=== PATIENT | male | born 1975 | race Caucasian/White ===

== ENCOUNTER 2020-08-05 09:39 | Inpatient (IN) | payer OTHER ==
[2020-08-05] MEDS ORDERED: LABETALOL 5 MG/ML VIAL MDV IVP STA (09:55)
--- NOTE | 2020-08-05 09:58 | ED ---
General Adult HPI - General Chief complaint: Neuro Symptoms/Deficit Stated complaint: High BP Time Seen by Provider: 08/05/20 09:45 Source: patient, EMS Mode of arrival: EMS Limitations: no limitations - History of Present Illness Initial comments: Dictation was produced using [employer] dictation software. please excuse any grammatical, word or spelling errors. This patient was cared for during a federal and state declared state of emergency secondary to Covid 19 Chief Complaint: 45-year-old male presents with word finding difficulties History of Present Illness: Patient is a 45-year-old male he has past medical history of hypertension and tobacco abuse. Patient noticed yesterday that he began having difficulty speaking. He feels like he is having trouble finding words. Initially his symptoms were noticed at around lunchtime yesterday. He states that his symptoms progressed area does morning he had a phone call with another individual who had difficulty understanding his speech. Patient states he notices this. He reports that he is having difficulty finding words. Denies any noticing paresthesias to the arms or legs. No history of CVA. Patient takes multiple medications for CVA. No history of CVA. He has no pain complaints at this time. The ROS documented in this emergency department record has been reviewed and confirmed by me. Those systems with pertinent positive or negative responses have been documented in the HPI. All other systems are other negative and/or noncontributory. PHYSICAL EXAM: General Impression: Alert and oriented x3, not in acute distress HEENT: Normocephalic atraumatic, extra-ocular movements intact, pupils equal and reactive to light bilaterally, mucous membranes moist. Cardiovascular: Heart regular rate and rhythm Chest: Able to complete full sentences, no retractions, no tachypnea Abdomen: abdomen soft, non-tender, non-distended, no organomegaly Musculoskeletal: Pulses present and equal in all extremities, no peripheral edema Motor: no focal deficits noted Neurological: CN II-XII grossly intact, no focal motor or sensory deficits noted, NIH of 1 for mild dysarthria, non-aphasic, no ataxia to the extremities Skin: Intact with no visualized rashes Psych: Normal affect and mood ED course: 45-year-old male presents with strokelike symptoms. Is unclear when patients symptoms started. He knows it at around noon yesterday however could quite possibly be that he suffered CVA while in his sleep. As upon arrival shows blood pressure of 239/146, rest of vital signs within acceptable limits. Patient takes multiple blood pressure medications. He states he is noncompliant with his BP meds. Laboratory evaluation obtained. CBC unremarkable. Coag panel is negative. Metabolic panel shows creatinine of 1.28. Bilirubin 1.9. Rest of labs unremarkable. CT of the brain shows no acute processes. Chest x-ray unremarkable. CT angios the head and neck shows no acute processes. Patient is very hypertensive upon arrival with a initial blood pressure 239 of 146. Repeat shows 2 4163. Given degree of hypertension. She was given labetalol with decreased blood pressure 180/133. Patient symptoms still persistent. She given aspirin. Patient be admitted for concerns of CVA. Given duration of patient's symptoms and NIH of 0 TPA not indicated at this time. Patient is agreeable for admission. Neurology will be consulted. EKG interpretation: Ventricular rate V1, normal sinus rhythm, CO interval 160, QRS 124, QTC 450. No CO prolongation, no QTC prolongation. I see elevation in V3 and V4 with concave upwards. Patient has no chest pain. No EKG for comparisonRepeat EKG was performed approximately 30 minutes later showing no dynamic changes. EKG shows heart rate of 69, normal sinus rhythm,. Interval 82, QRS 114, QTc 424 EKG likely secondary to benign early repolarization secondary to hypertensive heart disease from chronic antihypertensive rx noncompliance. - Related Data Home Medications Medication Instructions Recorded Confirmed Carvedilol [Coreg] 25 mg PO BID 08/05/20 08/05/20 hydrALAZINE HCL [Apresoline] 50 mg PO TID 08/05/20 08/05/20 lisinopriL [Zestril] 20 mg PO BID 08/05/20 08/05/20 Allergies Allergy/AdvReac Type Severity Reaction Status Date / Time No Known Allergies Allergy Verified 08/05/20 11:04 Review of Systems ROS Statement: Those systems with pertinent positive or pertinent negative responses have been documented in the HPI. ROS Other: All systems not noted in ROS Statement are negative. Past Medical History Past Medical History: Hypertension History of Any Multi-Drug Resistant Organisms: None Reported Past Surgical History: Cholecystectomy Past Psychological History: No Psychological Hx Reported Smoking Status: Current every day smoker Past Alcohol Use History: None Reported Past Drug Use History: None Reported General Exam Limitations: no limitations Course Vital Signs 08/05/20 08/05/20 08/05/20 09:42 09:51 10:02 Temperature 98 F Pulse Rate 75 80 73 Respiratory 18 16 18 Rate Blood Pressure 239/146 240/163 206/138 O2 Sat by Pulse 99 97 98 Oximetry 08/05/20 10:16 Temperature Pulse Rate 70 Respiratory 18 Rate Blood Pressure 188/133 O2 Sat by Pulse 97 Oximetry Medical Decision Making - Lab Data Result diagrams: 08/05/20 10:08 08/05/20 10:08 Lab Results 08/05/20 08/05/20 08/05/20 Range/Units 10:08 10:08 10:08 WBC 7.8 (3.8-10.6) k/uL RBC 5.40 (4.30-5.90) m/uL Hgb 16.2 (13.0-17.5) gm/dL Hct 45.7 (39.0-53.0) % MCV 84.7 (80.0-100.0) fL MCH 30.0 (25.0-35.0) pg MCHC 35.4 (31.0-37.0) g/dL RDW 13.3 (11.5-15.5) % Plt Count 179 (150-450) k/uL MPV 7.1 Neutrophils % 67 % Lymphocytes % 23 % Monocytes % 4 % Eosinophils % 4 % Basophils % 1 % Neutrophils # 5.2 (1.3-7.7) k/uL Lymphocytes # 1.8 (1.0-4.8) k/uL Monocytes # 0.3 (0-1.0) k/uL Eosinophils # 0.3 (0-0.7) k/uL Basophils # 0.1 (0-0.2) k/uL PT 10.3 (9.0-12.0) sec INR 1.0 (<1.2) APTT 23.9 (22.0-30.0) sec Sodium 143 (137-145) mmol/L Potassium 3.5 (3.5-5.1) mmol/L Chloride 108 H (98-107) mmol/L Carbon Dioxide 28 (22-30) mmol/L Anion Gap 7 mmol/L BUN 14 (9-20) mg/dL Creatinine 1.28 H (0.66-1.25) mg/dL Est GFR (CKD-EPI)AfAm 79 (>60 ml/min/1.73 sqM) Est GFR (CKD-EPI)NonAf 68 (>60 ml/min/1.73 sqM) Glucose 112 H (74-99) mg/dL Calcium 9.4 (8.4-10.2) mg/dL Total Bilirubin 1.9 H (0.2-1.3) mg/dL AST 18 (17-59) U/L ALT 11 (4-49) U/L Alkaline Phosphatase 73 (38-126) U/L Troponin I (0.000-0.034) ng/mL Total Protein 6.9 (6.3-8.2) g/dL Albumin 4.3 (3.5-5.0) g/dL 08/05/20 Range/Units 10:08 WBC (3.8-10.6) k/uL RBC (4.30-5.90) m/uL Hgb (13.0-17.5) gm/dL Hct (39.0-53.0) % MCV (80.0-100.0) fL MCH (25.0-35.0) pg MCHC (31.0-37.0) g/dL RDW (11.5-15.5) % Plt Count (150-450) k/uL MPV Neutrophils % % Lymphocytes % % Monocytes % % Eosinophils % % Basophils % % Neutrophils # (1.3-7.7) k/uL Lymphocytes # (1.0-4.8) k/uL Monocytes # (0-1.0) k/uL Eosinophils # (0-0.7) k/uL Basophils # (0-0.2) k/uL PT (9.0-12.0) sec INR (<1.2) APTT (22.0-30.0) sec Sodium (137-145) mmol/L Potassium (3.5-5.1) mmol/L Chloride (98-107) mmol/L Carbon Dioxide (22-30) mmol/L Anion Gap mmol/L BUN (9-20) mg/dL Creatinine (0.66-1.25) mg/dL Est GFR (CKD-EPI)AfAm (>60 ml/min/1.73 sqM) Est GFR (CKD-EPI)NonAf (>60 ml/min/1.73 sqM) Glucose (74-99) mg/dL Calcium (8.4-10.2) mg/dL Total Bilirubin (0.2-1.3) mg/dL AST (17-59) U/L ALT (4-49) U/L Alkaline Phosphatase (38-126) U/L Troponin I <0.012 (0.000-0.034) ng/mL Total Protein (6.3-8.2) g/dL Albumin (3.5-5.0) g/dL Disposition Clinical Impression: Dysarthria, Hypertensive urgency Disposition: ADMITTED IP TO THIS HOSP Condition: Fair Referrals: Vitaly Abbott DO [Primary Care Provider] - 1-2 days Decision Time: 12:12
[2020-08-05 10:21] LABS: Basophils # (A) 0.1 k/uL (0-0.2); Basophils % (A) 1 %; Eosinophils # (A) 0.3 k/uL (0-0.7); Eosinophils % (A) 4 %; HCT 45.7 % (39.0-53.0); HGB 16.2 gm/dL (13.0-17.5); Lymphocytes # (A) 1.8 k/uL (1.0-4.8); Lymphocytes % (A) 23 %; MCHC 35.4 g/dL (31.0-37.0); MCV 84.7 fL (80.0-100.0); Mean Platelet Volume 7.1; Monocytes # (A) 0.3 k/uL (0-1.0); Monocytes % (A) 4 %; Neutrophils # (A) 5.2 k/uL (1.3-7.7); Neutrophils % (A) 67 %; Platelet Count 179 k/uL (150-450); RDW 13.3 % (11.5-15.5); WBC 7.8 k/uL (3.8-10.6)
[2020-08-05 10:35] LABS: Partial Thromboplastin Time 23.9 sec (22.0-30.0); Prothrombin Time 10.3 sec (9.0-12.0)
[2020-08-05 10:37] LABS: Albumin 4.3 g/dL (3.5-5.0); Calcium 9.4 mg/dL (8.4-10.2); Potassium 3.5 mmol/L (3.5-5.1); Total Bilirubin 1.9 mg/dL (0.2-1.3); Total Protein 6.9 g/dL (6.3-8.2)
--- NOTE | 2020-08-05 10:38 | CT ---
EXAMINATION TYPE: CT brain wo con for TPA DATE OF EXAM: 08/05/2020 COMPARISON: None INDICATION: episode of slurred speech DLP: 1077 mGycm, Automated exposure control for dose reduction was used. CONTRAST: None CT of the brain is performed utilizing 3 mm thick sections through the posterior fossa and 3 mm thick sections through the remaining calvarium. Study is performed within 24 hours of arrival to the hosp ital. No abnormal hyperdensity is present to suggest an acute intracranial hemorrhage. No mass lesion is evident. No acute infarcts are evident. Ventricles and sulci are appropriate for the patient age. Paranasal sinuses and mastoid air cells within the [id number] are clear. IMPRESSIONS: 1. No acute intracranial process.
--- NOTE | 2020-08-05 10:43 | XR ---
EXAMINATION TYPE: XR chest 2V DATE OF EXAM: 08/05/2020 CLINICAL HISTORY: altered mental status. TECHNIQUE: Frontal and lateral view of the chest. COMPARISON: 03/01/2012 chest radiograph FINDINGS: The cardiomediastinal silhouette is within normal limits for size. Pulmonary vasculature i s normal. There is no focal air space opacity, pleural effusion, or pneumothorax seen. The osseous st ructures are intact. IMPRESSION: No acute cardiopulmonary process.
--- NOTE | 2020-08-05 10:52 | CT ---
EXAMINATION TYPE: CT angio head neck DATE OF EXAM: 08/05/2020 COMPARISON: None HISTORY: episode of slurred speech CT DLP: 507.4 mGycm CONTRAST: Performed with IV Contrast, patient injected with 65 mL of Isovue 370. Combination Contrast CTA cervical carotids and [place] CTA cervical carotids with 3-D recons truction Contrast CTA of the cervical carotids was performed 3-D reconstruction imaging obtained at a separate workstation. Right carotid system: Mild plaque is seen of the right common carotid artery. There is mild plaque a lso noted at the carotid bulb and proximal ICA. No significant diameter reduction. ECA is patent. Right vertebral artery appears unremarkable. Left carotid system: Mild plaque is seen of the left common carotid artery. There is mild plaque als o noted at the carotid bulb and proximal ICA. No significant diameter reduction. ECA is patent. Lef t vertebral artery appears unremarkable. IMPRESSION: 1. No significant diameter reduction to account for the patient's symptoms. CTA [place] with 3-D reconstruction Contrast CTA of the [place] was performed 3-D reconstruction imaging obtained at a separate workstation. Vertebrobasilar system as well as intracranial portions of the internal carotid arteries and their ma ezekiel tributaries are patent. I do not see evidence for sizable aneurysm or vascular malformation. Pl ease note MRI provides greater sensitivity and specificity. Visualized brain appears grossly unremar kable. IMPRESSION: 1. No significant abnormality.
[2020-08-05] MEDS ORDERED: ASPIRIN 81 MG PO STA (11:32)
[2020-08-05] MEDS ORDERED: NALOXONE 0.4 MG/ML 1 ML VIAL IV PRN (11:49)
[2020-08-05] MEDS: SODIUM CHLORIDE 0.9% 1,000 ML IV SCH (12:37)
[2020-08-05] MEDS ORDERED: lisinopriL 20 MG TAB PO SCH (14:00)
[2020-08-05] MEDS ORDERED: carvediloL 12.5 MG TAB PO SCH (14:00)
[2020-08-05] MEDS: hydrALAZINE HCL 50 MG TAB PO SCH ×2 (14:58→22:11)
[2020-08-05] MEDS: ENOXAPARIN 40 MG/0.4 ML SYRINGE SQ SCH (14:58)
[2020-08-05] MEDS ORDERED: MELATONIN 3 MG TABLET PO PRN (16:32)
[2020-08-05] MEDS ORDERED: CALCIUM CARBONATE 500 MG CHEWABLE PO PRN (16:32)
[2020-08-05] MEDS ORDERED: MAG HYDROX/AL HYDROX/SIMETH 30 ML CUP PO PRN (16:32)
[2020-08-05] MEDS ORDERED: ONDANSETRON 4 MG/2 ML VIAL IVP PRN (16:32)
[2020-08-05] MEDS ORDERED: LACTULOSE 20 GM/30 ML CUP PO PRN (16:32)
--- NOTE | 2020-08-05 17:18 | US ---
EXAMINATION TYPE: US carotid duplex BILAT DATE OF EXAM: 08/05/2020 COMPARISON: NONE CLINICAL HISTORY: dysarthia. Pt states slurred speech EXAM MEASUREMENTS: RIGHT: Peak Systolic Velocity (PSV) cm/sec ----- Right CCA: 76.8 ----- Right ICA: 88.9 ----- Right ECA: 108.1 ICA/CCA ratio: 1.2 RIGHT: End Diastole cm/sec ----- Right CCA: 19.7 ----- Right ICA: 30.7 ----- Right ECA: 16.0 LEFT: Peak Systolic Velocity (PSV) cm/sec ----- Left CCA: 82.3 ----- Left ICA: 80.1 ----- Left ECA: 84.5 ICA/CCA ratio: 1.0 LEFT: End Diastole cm/sec ----- Left CCA: 27.4 ----- Left ICA: 31.8 ----- Left ECA: 16.4 VERTEBRALS (direction of flow): Right Vertebral: Antegrade Left Vertebral: Antegrade Rhythm: Normal No significant stenosis seen, 1.0 cm lymph node visualized left lateral neck near left CCA IMPRESSION: Images and measurements suggest close to 0% stenosis in both internal carotid arteries. There is ante grade flow in the vertebral arteries. Criteria for Assigning % of Stenosis / Diameter reduction (Estimation based on the indirect measurements of the internal carotid artery velocities (ICA PSV). 1. Normal (no stenosis)=ICA PSV < 125 cm/s: ratio < 2.0: ICA EDV<40 cm/s. 2. Less than 50% stenosis=ICA PSV < 125 cm/s: ratio < 2.0: ICA EDV<40 cm/s. 3. 50 to 69% stenosis=ICA PSV of 125 to 230 cm/s: ration 2.0 ? 4.0: ICA EDV 40-100 cm/s. 4. Greater than 70% stenosis to near occlusion= ICA PSV > 230 cm/s: ratio > 4.0: ICA EDV > 100 cm/s. 5. Near occlusion= ICA PSV velocities may be low or undetectable: variable ratio and ICA EDV. 6. Total occlusion=unable to detect flow.
--- NOTE | 2020-08-05 17:23 | US ---
EXAMINATION TYPE: US renals and bladder DATE OF EXAM: 08/05/2020 COMPARISON: US CLINICAL HISTORY: assess for CKD. Abnormal labs EXAM MEASUREMENTS: Right Kidney: 10.5 x 5.8 x 4.7 cm Left Kidney: 10.8 x 6.2 x 5.4 cm Right Kidney: No evidence of hydro, possible calculus mid= 0.4 cm Left Kidney: Appeared wnl Bladder: wnl Bilateral Jets seen: No There is no evidence for hydronephrosis at this point in time. No nephrolithiasis is seen. No marion s are identified. The urinary bladder is anechoic. Bilateral ureteral jets are seen. IMPRESSION: No evidence of renal mass or obstruction. Possible small calculus in the interpolar right kidney.
--- NOTE | 2020-08-05 19:25 | MR ---
EXAMINATION TYPE: MR brain wo con DATE OF EXAM: 08/05/2020 COMPARISON: None HISTORY: SLURRED SPEECH 08/04/20 & 08/05/20 Multiplanar multiecho imaging of the brain was performed without contrast. Diffusion images show linear 2 x 1 cm area of increased signal in the left parietal lobe at the oliver- white matter junction consistent with an acute infarct. There is no mass effect nor midline shift. Th ere is 8mm focus of increased signal in the right anterior internal capsule on the T2 and FLAIR image s consistent with old lacunar infarct. There is 4 mm focus of increased signal in the brainstem at th e daryl on the posterior left side that could be old lacunar infarct close to the cerebellar peduncle. IMPRESSION: There is evidence for acute infarct in the white matter left parietal lobe. Old lacunar infarcts in the right anterior internal capsule and left side of the daryl.
--- NOTE | 2020-08-05 19:48 | P.CNNES ---
History of Present Illness Consult date: 08/05/20 Requesting physician: Jim Bryant Reason for Consult: Concern for stroke: Slurring of speech History of Present Illness: This is a 45-year-old right-handed gentleman with medical history of uncontrolled hypertension and tobacco use that presented to the emergency department on 08/05/2020 for difficulty speaking. He said around 12:30pm to 1pm yesterday he was having difficulty getting his words out. This was noticed by him and his significant other. He said that that was consistent throughout the day yesterday but he didn't make much out of it since the patient was tired. But his symptoms progressed the today in the morning. He was on a phone call and that individual on the phone and had difficulty understanding his speech. As a result he came to the hospital. Yesterday he stated that he had a headache that went from his neck all the way to the front and it was an aching headache. He denies any photophobia, phonophobia any nausea vomiting. Today his headache is resolved and currently has no headaches. He denies of any focal weakness or any paresthesia. He denies of any visual disturbance or difficulty swallowing. He denies of any stroke or TIA. He said that he has hypertension for the past 24 years but at his hypertension has been uncontrolled. He said he cannot tolerate medications because of the side effects so as a result the there is days that he doesn't take his medications. He said that he is on losartan and Corag the for his hypertension treatment. He smokes about half a pack to three quarters of a pack a day since 2008 at. He denies being on aspirin or any antiplatelets. Denies being on any statins. Workup in the hospital consisted of: Initial vital signs: Blood pressure of 239/146, heart rate of 75, which are of 98 Fahrenheit, respiratory of 18 and pulse ox of 99% room air. CT of the head was reported as no acute intracranial process. CT angiography of the head and neck was reported as no significant abnormality. EKG is reported as normal sinus rhythm. Ventricular rate of 81. Right bundle branch block. Left anterior fascicular block. Bifascicular block. Left ventricular hypertrophy with repolarization abnormality. In the ED the patient was given labetalol 20 mg IV push once and was started on hydralazine 50 mg 1 tablet 3 times a day as well as carvedilol 25 mg 1 tablet twice a day as well as lisinopril 20 mg twice a day by the primary team. Review of Systems Review of system: The 12 point system was reviewed and apparent positive and negative per HPI. Past Medical History Past Medical History: Hypertension History of Any Multi-Drug Resistant Organisms: None Reported Past Surgical History: Cholecystectomy Past Psychological History: No Psychological Hx Reported Smoking Status: Current every day smoker Past Alcohol Use History: None Reported Past Drug Use History: None Reported - Past Family History Father Family Medical History: Cancer, Diabetes Mellitus, Hypertension, Renal Disease Mother Family Medical History: Coronary Artery Disease (CAD) Medications and Allergies Home Medications Medication Instructions Recorded Confirmed Type Carvedilol [Coreg] 25 mg PO BID 08/05/20 08/05/20 History hydrALAZINE HCL [Apresoline] 50 mg PO TID 08/05/20 08/05/20 History lisinopriL [Zestril] 20 mg PO BID 08/05/20 08/05/20 History Allergies Allergy/AdvReac Type Severity Reaction Status Date / Time No Known Allergies Allergy Verified 08/05/20 11:04 Physical Examination - Vital Signs Vital Signs: Vital Signs Temp Pulse Resp BP Pulse Ox 08/05/20 12:55 64 18 179/117 96 08/05/20 12:30 98.1 F 71 18 189/118 97 08/05/20 10:16 70 18 188/133 97 08/05/20 10:02 73 18 206/138 98 08/05/20 09:51 80 16 240/163 97 08/05/20 09:42 98 F 75 18 239/146 99 Intake and Output 08/05/20 08/05/20 08/05/20 06:59 14:59 22:59 Intake Total 222 Balance 222 Intake: Oral 222 Other: Weight 88.451 kg GENERAL: The patient is lying in bed and is not in acute distress. CHEST: The heart rate is regular rate rhythm. No murmurs to auscultation. No carotid bruit bilaterally. LUNG: Clear to auscultation bilaterally no wheezing noted throughout. Not labored breathing. ABDOMEN/GI: Bowel sounds present in all 4 quadrants. No tenderness to palpation throughout. NEUROLOGICAL: Higher mental function: The patient is awake, alert, oriented to self, place and time. Able to identify objects correctly such as a pen and watch and the phone. Patient is following commands. No aphasia . Noted. No neglect. Cranial nerves: The pupils are round, equal and reactive to light and accommodation. Visual taylor are full to confrontation throughout. Extraocular movement is intact no nystagmus is noted. Facial sensation is normal to touch throughout. The facial strength is normal throughout. Hearing is normal bilaterally to hand rub. Tongue is midline and moved [id number] without any difficulty. Mild dysarthria is noted. Shoulder shrug is normal bilaterally. Motor: The strength is 5 over 5 throughout. Normal tone and bulk. Cerebellum: Normal finger to nose heel to chin bilaterally. Sensation: Sensation is normal to touch throughout. Reflexes (right/left): 2+ throughout. Plantars are downgoing bilaterally. Results Vibration study: PT of 10.3, INR 1.0, PTT of 23.9. - Laboratory Findings CBC and BMP: 08/05/20 10:08 08/05/20 10:08 Abnormal Lab Findings: Abnormal Labs 08/05/20 10:08 Chloride 108 H Creatinine 1.28 H Glucose 112 H Total Bilirubin 1.9 H Assessment and Plan Assessment: This 45-year-old gentleman with medical history of hypertension and tobacco use that presented to the emergency department on 08/05/2020 for difficulty speaking. Dysarthria due to acute stroke. Etiology small vessel disease. Cannot rule out cardioembolic (per patient nurse his cardiac care unit nurse was suspicious for atrial fibrillation). ?cardiac care unit nurse was suspicious for atrial fibrillation (per patient nurse) Hypertensive urgency (uncontrolled hypertension) Tobacco use Plan: MRI of the brain ordered and pending final report. But DWI and flair there was a hyperintensity in the left frontal parietal region. Aspirin 324 mg was given once in the ED. patient was started on aspirin 81 mg and Plavix 75 mg by the primary team as well as was started on Lipitor 40 mg daily as well as by the primary team. Continue aspirin 81 mg indefinetiley then discontinue plavix after 21 days. I consulted cardiology because of the suspicion of A. fib. Carotid duplex was ordered by the primary team's reported as image and measurements suggest close to 0% stenosis in both internal carotid arteries. There is antegrade flow in the vertebral arteries. Consulted Speech and Language therapy. Also PT/OT. Lipid panel is pending. Ordered hemoglobin A1c and TSH. Ordered 2-D echo. I highly recommend of avoiding being aggressive on treating the hypertension more then the 15% in 24 hours especially with acute stroke. Recommend the blood pressure to be 180-200 on the first day then gradually bring the blood pressure. I'll defer the management to the primary team. Thank you for the consultation. Desean Brothers M.D. Neuro-hospitalist Time with Patient: Greater than 30
--- NOTE | 2020-08-05 21:57 | P.HPIM ---
History of Present Illness H&P Date: 08/05/20 Chief Complaint: difficulty speaking History of presenting complaint: This is a pleasant 44-year-old patient who follows with Dr. Rodríguez. Patient has a long-standing diagnosis of hypertension. And takes Zestril Coreg and hydralazine. 2 days ago patient decided not to take his medications as he didn't feel good about it. Yesterday he noticed that his words are not coming out his speech was slurred . He was also having some headache. No weakness in the limbs. No change in vision. This morning he was talking to a colleague of his on the phone previously she was a nurse. She thought he was drunk. Then she told him go to the ER. In the ER patient is not found to be candidate for thrombolysis. Patient stated his blood pressure normally runs high close to oftentimes due to 118 200 systolic.. Has not been well controlled. When I saw the patient about 5 PM today patient speech is better but not back to his baseline. Review of systems: GEN.: Tired EYES: None HEENT: None NECK: None RESPIRATORY: None CARDIOVASCULAR: None GASTROINTESTINAL: None GENITOURINARY: None MUSCULOSKELETAL: None LYMPHATICS: None HEMATOLOGICAL: None PSYCHIATRY: None NEUROLOGICAL: As above Past medical history to include: Essential hypertension Social history: Works in the IT department. . Smokes about three-quarter packs a day for about last 13 years. No alcohol. No recreational drugs. Physical examination: VITAL SIGNS: 98, 75, 18, 139/146, pulse of 99% room air-upon presentation GENERAL: BMI 27, sitting up on the bed, slightly anxious. EYES: Pupils equal. Conjunctiva normal. HEENT: External appearance of nose and ears normal, oral cavity grossly normal. NECK: JVD not raised; masses not palpable. HEART: First and second heart sounds are normal; no edema. LUNGS: Respiratory rate normal; clear to auscultation. ABDOMEN: Soft, nontender, liver spleen not palpable, no masses palpable. PSYCH: Alert and oriented x3; mood and affect normal. NEUROLOGICAL: Cranial nerves grossly intact; no facial asymmetry, power and sensation grossly intact. LYMPHATICS: No lymph nodes palpable in the axilla and neck INVESTIGATIONS, reviewed in the clinical context: White count 7.8 hemoglobin 16.2 platelets 179 potassium 3.5 creatinine 1.28 Computed tomography scan of the brain without contrast-nothing acute Chest x-ray film personally reviewed by me-lung taylor clear EKG tracing personally reviewed by me-sinus rhythm, right bundle branch block pattern, LVH with strain pattern Renal ultrasound-unremarkable Carotid Doppler-unremarkable MRI of the brain-acute infarct in the white matter left parietal lobe. Old lacunar infarct in the right anterior internal capsule and left side of the daryl Assessment: -Acute stroke no white matter of the left parietal lobe. Given the other evidence of lacunar infarct in other areas, this could be from uncontrolled hypertension. Embolic need to be considered. 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 Asymptomatic -Chronic nicotine dependence patient cigarette smoker -Acute dysarthria from stroke Plan: Patient's symptoms not been present for over 24 hours. Patient has not been taking his antihypertensives for last 2 days. Resume the same. History of Coreg will use labetalol 200 mg twice a day. He was also sent off. Consultation was made to nephrology, neurology, and currently. There is a question about paroxysmal atrial fibrillation. 2-D echocardiogram also ordered. Add Lipitor, aspirin, Plavix. Lovenox for DVT prophylaxis. Care was discussed with the patient. Add nicotine patch. Speech therapy consult. Past Medical History Past Medical History: Hypertension History of Any Multi-Drug Resistant Organisms: None Reported Past Surgical History: Cholecystectomy Past Psychological History: No Psychological Hx Reported Smoking Status: Current every day smoker Past Alcohol Use History: None Reported Past Drug Use History: None Reported - Past Family History Father Family Medical History: Cancer, Diabetes Mellitus, Hypertension, Renal Disease Mother Family Medical History: Coronary Artery Disease (CAD) Medications and Allergies Home Medications Medication Instructions Recorded Confirmed Type Carvedilol [Coreg] 25 mg PO BID 08/05/20 08/05/20 History hydrALAZINE HCL [Apresoline] 50 mg PO TID 08/05/20 08/05/20 History lisinopriL [Zestril] 20 mg PO BID 08/05/20 08/05/20 History Allergies Allergy/AdvReac Type Severity Reaction Status Date / Time No Known Allergies Allergy Verified 08/05/20 11:04 Physical Exam Vitals: Vital Signs Temp Pulse Pulse Resp BP BP Pulse Ox 08/05/20 18:49 72 184/129 97 08/05/20 14:24 97.4 F L 71 206/128 96 08/05/20 12:55 64 18 179/117 96 08/05/20 12:30 98.1 F 71 18 189/118 97 08/05/20 10:16 70 18 188/133 97 08/05/20 10:02 73 18 206/138 98 08/05/20 09:51 80 16 240/163 97 08/05/20 09:42 98 F 75 18 239/146 99 Intake and Output 08/05/20 08/05/20 08/05/20 06:59 14:59 22:59 Intake Total 222 222 Balance 222 222 Intake: Oral 222 222 Other: # Voids 1 Weight 88.451 kg 87.9 kg Results CBC & Chem 7: 08/05/20 10:08 08/05/20 10:08 Labs: Abnormal Lab Results - Last 24 Hours (Table) 08/05/20 Range/Units 10:08 Chloride 108 H (98-107) mmol/L Creatinine 1.28 H (0.66-1.25) mg/dL Glucose 112 H (74-99) mg/dL Total Bilirubin 1.9 H (0.2-1.3) mg/dL Thrombosis Risk Factor Assmnt - Choose All That Apply Each Factor Represents 1 point: Age 41-60 years Thrombosis Risk Factor Assessment Total Risk Factor Score: 1 Thrombosis Risk Factor Assessment Level: Low Risk
[2020-08-05] MEDS: LABETALOL 200 MG TAB PO SCH (22:11)
[2020-08-05] MEDS: NICOTINE 21MG/24HR PATCH TRANSDERM SCH (22:14)
[2020-08-05] MEDS: ATORVASTATIN 40 MG TAB PO SCH (22:14)
[2020-08-05] MEDS: ACETAMINOPHEN TAB 325 MG TAB PO PRN (23:36)
[2020-08-05] MEDS: LISINOPRIL-HCTZ 20-12.5 MG 1 EACH TAB PO SCH (23:37)
[2020-08-06 00:37] LABS: Appearance,Urine Clear (Clear); Bilirubin,Urine Negative (Negative); Blood,Urine Negative (Negative); Color,Urine Yellow; Glucose,Urine (UA) Negative (Negative); Ketones,Urine Negative (Negative); Leukocyte Esterase,Urine Negative (Negative); Nitrite,Urine Negative (Negative); PH, Urine 6.5 (5.0-8.0); Protein,Urine Trace (Negative); Specific Gravity,Urine 1.045 (1.001-1.035)
[2020-08-06] MEDS: hydrALAZINE HCL 50 MG TAB PO SCH ×3 (08:56→21:00)
[2020-08-06] MEDS: CLOPIDOGREL 75 MG TAB PO SCH (08:56)
[2020-08-06] MEDS: ENOXAPARIN 40 MG/0.4 ML SYRINGE SQ SCH (08:57)
[2020-08-06] MEDS: NICOTINE 21MG/24HR PATCH TRANSDERM SCH (08:57)
[2020-08-06] MEDS: ASPIRIN 81 MG PO SCH (08:57)
[2020-08-06] MEDS: LABETALOL 200 MG TAB PO SCH (09:00)
[2020-08-06] MEDS: LISINOPRIL-HCTZ 20-12.5 MG 1 EACH TAB PO SCH ×2 (09:00→23:59)
--- NOTE | 2020-08-06 11:44 | P.CRDCN ---
History of Present Illness Consult date: 08/06/20 History of present illness: CHIEF COMPLAINT: Possible A. fib HISTORY OF PRESENT ILLNESS: This is a 45 -year old male with a past medical history significant for hypertension and nicotine dependence. Patient states he saw Dr. Wong in the office about 4 years ago. He reports seeing a fold skiver up in [place] since that time. We have been asked to see the patient in consultation for possible A. fib. Patient presented to the hospital secondary to slurred speech and expressive aphasia. He has been evaluated by neurology and diagnosed with an acute CVA. Patient states his speech is improving but not back to his baseline. Patient denies a previous history of atrial fibrillation. Telemetry tracings reviewed which did not reveal any evidence of A. fib. Patient does report feeling his heart skip a beat about once a week for 5-10 minutes. Patient states he checks his blood pressure at home and it is usually 200-215s over 115s. He states his blood pressure has been running like that since 1995. He states the lowest systolic reading he has seen at home recently as 189. He reports he used to see Dr. Baron as his PCP. He was prescribed multiple blood pressure medications but didn't feel like they're helping so he quit taking them. He switched his primary care physician to Dr. Abbott and states he was also prescribed multiple medications. The patient reports he has not always compliant with his blood pressure medications. DIAGNOSTICS: EKG reveals sinus rhythm Chest xray negative for an acute cardiopulmonary process Laboratory data: WBC 7.8. Hemoglobin 16.2. Platelet count 179. Sodium 143. Potassium 3.5. BUN 14. Creatinine 1.28. Troponin negative 1. Current home cardiac medications include lisinopril 20 mg twice a day, Coreg 25 mg twice a day, hydralazine 50 g 3 times a day REVIEW OF SYSTEMS: At the time of my exam: CONSTITUTIONAL: Denies fever or chills. HEENT: Denies blurred vision, vision changes, or eye pain. Denies hemoptysis. Reports slurred speech. CARDIOVASCULAR: Denies chest pain, orthopnea, PND or palpitations RESPIRATORY: No shortness of breath. GASTROINTESTINAL: Denies abdominal pain. Denies nausea or vomiting. HEMATOLOGIC: Denies bleeding disorders. GENITOURINARY: Denies any blood in urine. SKIN: Denies pruitis. Denies rash. PHYSICAL EXAM: VITAL SIGNS: Reviewed. GENERAL: Well-developed in no acute distress. HEENT: Head is normocephalic. Pupils are equal, round. Sclerae anicteric. Mucous membranes of the mouth are moist. Neck supple. No JVD or thyromegaly LUNGS: Respirations even and unlabored. Lungs essentially clear to auscultation bilaterally. HEART: Regular rate and rhythm. S1 and S2 heard. ABDOMEN: Soft. Nondistended. Nontender. EXTREMITIES: Normal range of motion. No clubbing or cyanosis. Peripheral pulses intact. No lower extremity edema NEUROLOGIC: Awake and alert. Oriented x 3. ASSESSMENT: Acute CVA Hypertension, uncontrolled Palpitations, No evidence of atrial fibrillation on telemetry Medical noncompliance Nicotine dependence PLAN: Nephrology on consult. Continue aspirin and plavix per neuro. Continue telemetry monitoring to assess for any arrhythmias Continue to monitor blood pressure Obtain 2-D echo to assess cardiac structure and function Obtain bubble study Patient to have an event monitor placed at time of discharge for 30 days. If no evidence of atrial fibrillation is noted on event monitor, may consider loop recorder Further recommendations pending patient course Nurse practitioner note has been reviewed by physician. Signing provider agrees with the documented findings, assessment, and plan of care. Past Medical History Past Medical History: Hypertension History of Any Multi-Drug Resistant Organisms: None Reported Past Surgical History: Cholecystectomy Past Psychological History: No Psychological Hx Reported Smoking Status: Current every day smoker Past Alcohol Use History: None Reported Past Drug Use History: None Reported - Past Family History Father Family Medical History: Cancer, Diabetes Mellitus, Hypertension, Renal Disease Mother Family Medical History: Coronary Artery Disease (CAD) Medications and Allergies Home Medications Medication Instructions Recorded Confirmed Type Carvedilol [Coreg] 25 mg PO BID 08/05/20 08/05/20 History hydrALAZINE HCL [Apresoline] 50 mg PO TID 08/05/20 08/05/20 History lisinopriL [Zestril] 20 mg PO BID 08/05/20 08/05/20 History Allergies Allergy/AdvReac Type Severity Reaction Status Date / Time No Known Allergies Allergy Verified 08/05/20 11:04 Physical Exam Vitals: Vital Signs Temp Pulse Pulse Resp BP BP Pulse Ox 08/06/20 04:00 97.8 F 67 16 170/113 96 08/06/20 00:00 98.2 F 68 15 166/113 96 08/05/20 20:00 98.6 F 82 15 186/114 96 08/05/20 18:49 72 184/129 97 08/05/20 14:24 97.4 F L 71 206/128 96 08/05/20 12:55 64 18 179/117 96 08/05/20 12:30 98.1 F 71 18 189/118 97 08/05/20 10:16 70 18 188/133 97 Intake and Output 08/05/20 08/06/20 08/06/20 22:59 06:59 14:59 Intake Total 222 600 200 Balance 222 600 200 Intake: Oral 222 600 200 Other: # Voids 1 Weight 87.9 kg 88 kg Results 08/05/20 10:08 08/05/20 10:08 Cardiac Enzymes 08/05/20 08/05/20 Range/Units 10:08 10:08 AST 18 (17-59) U/L Troponin I <0.012 (0.000-0.034) ng/mL Coagulation 08/05/20 Range/Units 10:08 PT 10.3 (9.0-12.0) sec APTT 23.9 (22.0-30.0) sec CBC 08/05/20 Range/Units 10:08 WBC 7.8 (3.8-10.6) k/uL RBC 5.40 (4.30-5.90) m/uL Hgb 16.2 (13.0-17.5) gm/dL Hct 45.7 (39.0-53.0) % Plt Count 179 (150-450) k/uL Comprehensive Metabolic Panel 08/05/20 Range/Units 10:08 Sodium 143 (137-145) mmol/L Potassium 3.5 (3.5-5.1) mmol/L Chloride 108 H (98-107) mmol/L Carbon Dioxide 28 (22-30) mmol/L BUN 14 (9-20) mg/dL Creatinine 1.28 H (0.66-1.25) mg/dL Glucose 112 H (74-99) mg/dL Calcium 9.4 (8.4-10.2) mg/dL AST 18 (17-59) U/L ALT 11 (4-49) U/L Alkaline Phosphatase 73 (38-126) U/L Total Protein 6.9 (6.3-8.2) g/dL Albumin 4.3 (3.5-5.0) g/dL Current Medications Generic Name Dose Route Start Last Admin Trade Name Freq PRN Reason Stop Dose Admin Acetaminophen 650 mg 08/05/20 16:32 08/05/20 23:36 Acetaminophen Tab 325 Mg Tab PO 650 mg Q6HR PRN Administration Mild Pain or Fever > 100.5 Al Hydroxide/Mg Hydroxide 15 ml 08/05/20 16:32 Mag Hydrox/Al Hydrox/Simeth 30 Ml Cup PO Q6HR PRN Indigestion Aspirin 81 mg 08/06/20 09:00 08/06/20 08:57 Aspirin 81 Mg PO 81 mg DAILY JASWINDER Administration Atorvastatin Calcium 40 mg 08/05/20 21:00 08/05/20 22:14 Atorvastatin 40 Mg Tab PO 40 mg HS JASWINDER Administration Calcium Carbonate/Glycine 1,000 mg 08/05/20 16:32 Calcium Carbonate 500 Mg Chewable PO Q4HR PRN Dyspepsia Clopidogrel Bisulfate 75 mg 08/06/20 09:00 08/06/20 08:56 Clopidogrel 75 Mg Tab PO 75 mg DAILY JASWINDER Administration Enoxaparin Sodium 40 mg 08/05/20 14:00 08/06/20 08:57 Enoxaparin 40 Mg/0.4 Ml Syringe SQ 40 mg DAILY JASWINDER Administration Lisinopril/HCTZ 1 each 08/05/20 22:00 08/06/20 09:00 Lisinopril-Hctz 20-12.5 Mg 1 Each Tab PO 1 each BID JASWINDER Administration Hydralazine HCl 50 mg 08/05/20 15:00 08/06/20 08:56 Hydralazine Hcl 50 Mg Tab PO 50 mg TID JASWINDER Administration Sodium Chloride 1,000 mls @ 20 mls/hr 08/05/20 12:00 08/05/20 12:37 Saline 0.9% IV 20 mls/hr .Q24H JASWINDER Administration Labetalol HCl 200 mg 08/05/20 22:00 08/06/20 09:00 Labetalol 200 Mg Tab PO 200 mg BID JASWINDER Administration Lactulose 20 gm 08/05/20 16:32 Lactulose 20 Gm/30 Ml Cup PO DAILY PRN Constipation Melatonin 3 mg 08/05/20 16:32 Melatonin 3 Mg Tablet PO HS PRN Insomnia Naloxone HCl 0.2 mg 08/05/20 11:49 Naloxone 0.4 Mg/Ml 1 Ml Vial IV Q2M PRN Opioid Reversal Nicotine 1 patch 08/05/20 22:00 08/06/20 08:57 Nicotine 21mg/24hr Patch TRANSDERM 1 patch DAILY JASWINDER Administration Ondansetron HCl 4 mg 08/05/20 16:32 Ondansetron 4 Mg/2 Ml Vial IVP Q8HR PRN Nausea And Vomiting Intake and Output 08/05/20 08/06/20 08/06/20 22:59 06:59 14:59 Intake Total 222 600 200 Balance 222 600 200 Intake: Oral 222 600 200 Other: # Voids 1 Weight 87.9 kg 88 kg 08/05/20 10:08 08/05/20 10:08
[2020-08-06] MEDS: ACETAMINOPHEN TAB 325 MG TAB PO PRN (12:20)
[2020-08-06] MEDS: SODIUM CHLORIDE 0.9% 1,000 ML IV SCH (12:21)
[2020-08-06] MEDS ORDERED: hydrALAZINE HCL 20 MG/ML 1 ML VIAL IVP PRN (13:59)
--- NOTE | 2020-08-06 14:02 | P.NPCON ---
History of Present Illness - Reason for Consult acute renal failure, accelerated hypertension - History of Present Illness Reason for consultation: Acute kidney injury and hypertension History of present illness: Patient is a 45-year-old male seen in renal consultation for acute kidney injury and hypertension. Patient's creatinine was 1.28 on admission. No labs today. Creatinine in 2015 was in the range of 1.1-1.25. Patient presented to the hospital with headaches and slurred speech. Patient has long-standing history of high blood pressure and states he was initially diagnosed in 1995. Patient stopped taking his medications about 4-5 days prior to admission as he forgot. He noticed slurred speech and also had headaches since acutely came to the hospital. Patient's blood pressure was over 200 systolic on admission. He is currently maintained on Zestoretic 2012 0.5 mg twice daily, hydralazine 50 mg 3 times daily, labetalol 200 mg twice daily. Patient's MRI of the brain showed left parietal lobe acute infarct. He was also noted to have old lacunar infarcts. Renal ultrasound revealed normal sized kidneys without any evidence of hydronephrosis. He denies any hematuria or dysuria. No vomiting or diarrhea. No chest pain or shortness of breath. No vision changes. Denies regular use of nonsteroidals. He also received IV contrast dye for CT angiogram of the head which was negative. No history of diabetes. Denies family history of renal disease. Vital signs are stable. Blood pressure high. General: The patient appeared well nourished and normally developed. HEENT: Head exam is unremarkable. Neck is without jugular venous distension. LUNGS: Breath sounds decreased. HEART: Rate and Rhythm are regular. ABDOMEN: Soft, nontender. EXTREMITITES: No edema. Past Medical History Past Medical History: Hypertension History of Any Multi-Drug Resistant Organisms: None Reported Past Surgical History: Cholecystectomy Past Psychological History: No Psychological Hx Reported Smoking Status: Current every day smoker Past Alcohol Use History: None Reported Past Drug Use History: None Reported - Past Family History Father Family Medical History: Cancer, Diabetes Mellitus, Hypertension, Renal Disease Mother Family Medical History: Coronary Artery Disease (CAD) Medications and Allergies Home Medications Medication Instructions Recorded Confirmed Type Carvedilol [Coreg] 25 mg PO BID 08/05/20 08/05/20 History hydrALAZINE HCL [Apresoline] 50 mg PO TID 08/05/20 08/05/20 History lisinopriL [Zestril] 20 mg PO BID 08/05/20 08/05/20 History Allergies Allergy/AdvReac Type Severity Reaction Status Date / Time No Known Allergies Allergy Verified 08/05/20 11:04 Physical Exam Vitals: Vital Signs Temp Pulse Resp BP Pulse Ox 08/06/20 12:00 68 188/123 97 08/06/20 08:00 97.9 F 71 212/149 97 08/06/20 04:00 97.8 F 67 16 170/113 96 08/06/20 00:00 98.2 F 68 15 166/113 96 08/05/20 20:00 98.6 F 82 15 186/114 96 08/05/20 18:49 72 184/129 97 08/05/20 14:24 97.4 F L 71 206/128 96 Intake and Output 08/05/20 08/06/20 08/06/20 22:59 06:59 14:59 Intake Total 222 600 200 Balance 222 600 200 Intake: Oral 222 600 200 Other: # Voids 1 1 Weight 87.9 kg 88 kg Results - Lab Results Most recent lab results Calcium 9.4 mg/dL (8.4-10.2) 08/05/20 10:08 08/05/20 10:08 08/05/20 10:08 Assessment and Plan Plan: Assessment: 1. Hypertensive emergency. Secondary causes being ruled out. 2. Acute left parietal lobe CVA. 3. Chronic kidney disease stage III secondary to nephrosclerosis with baseline creatinine in the range of 1.1-1.3. UA fairly benign. Plan: Maintain current antihypertensives. Avoid rapid correction of hypertension due to acute CVA. Check renin and aldosterone levels. Check plasma metanephrines. Check renal ultrasound with Doppler. I will add hydralazine 10 mg every 4-6 hours as needed for systolic blood pressure greater than 180. Depending on his blood pressure readings tomorrow, plan to add calcium channel mariano and/or Aldactone and wean off hydralazine. Follow-up echocardiogram. Thank you for the consultation. I will continue to follow the patient with you during his hospital stay.
--- NOTE | 2020-08-06 17:28 | P.PN ---
Subjective Progress Note Date: 08/06/20 Patient was seen at bedside and he stated that he is doing better today compared to yesterday. He stated that the his slurring wrist. Speech is improved today compared to yesterday but has not completely resolved but he sees a difference. Otherwise he denies of any other neurological symptoms. Denies of any weakness, visual disturbance, sensory loss. He said that he had a mild headache over occipital and frontal the headache but otherwise was mild no nausea or vomiting associated with this. Denies any photophobia or photophobia associated with this. Objective - Vital Signs Vital signs: Vital Signs Temp 97.9 F 08/06/20 08:00 Pulse 68 08/06/20 12:00 Resp 16 08/06/20 04:00 BP 188/123 08/06/20 12:00 Pulse Ox 97 08/06/20 12:00 Intake & Output 08/05/20 08/06/20 08/06/20 18:59 06:59 18:59 Intake Total 444 600 325 Balance 444 600 325 Weight 87.9 kg 88 kg Intake: Oral 444 600 325 Other: # Voids 1 1 - Exam GENERAL: The patient is lying in bed and is not in acute distress. NEUROLOGICAL: Higher mental function: The patient is awake, alert, oriented to self, place and time. Able to identify objects correctly such as a pen and watch and the phone. Patient is following commands. No aphasia . Noted. No neglect. Cranial nerves: The pupils are round, equal and reactive to light and accommodation. Visual taylor are full to confrontation throughout. Extraocular movement is intact no nystagmus is noted. Facial sensation is normal to touch throughout. The facial strength is normal throughout. Hearing is normal bilaterally to hand rub. Tongue is midline and moved [id number] without any difficulty. Mild dysarthria is noted. Shoulder shrug is normal bilaterally. Motor: Gait is normal with normal arm swings. The strength is 5 over 5 throughout. Normal tone and bulk. Cerebellum: Normal finger to nose bilaterally. Sensation: Sensation is normal to touch throughout. Reflexes (right/left): 2+ throughout. Plantars are downgoing bilaterally. - Labs CBC & Chem 7: 08/05/20 10:08 08/05/20 10:08 Labs: Abnormal Lab Results - Last 24 Hours (Table) 08/05/20 08/06/20 Range/Units 23:25 09:15 Triglycerides 207 H (<150) mg/dL LDL Cholesterol, Calc 107 H (0-99) mg/dL HDL Cholesterol 35 L (40-60) mg/dL Ur Specific [place] 1.045 H (1.001-1.035) Urine Protein Trace H (Negative) Assessment and Plan Assessment: This 45-year-old gentleman with medical history of hypertension and tobacco use that presented to the emergency department on 08/05/2020 for difficulty speaking. Dysarthria due to acute ischemic left parietal. Etiology small vessel disease. Cannot rule out cardioembolic (per patient nurse his cardiac surgeon was suspicious for atrial fibrillation). Old lacunar infarct in the right anterior internal capsule and the left side of the daryl: I think likely it's due to small vessel disease from uncontrolled hypertension. ?cardiac surgeon was suspicious for atrial fibrillation (per patient nurse) Hypertensive urgency (uncontrolled hypertension) Tobacco use Plan: MRI of the brain was reported as the acute infarct in the white matter for left parietal lobe. Old lacunar infarct in the right anterior internal capsule on the left sided of the daryl. Aspirin 324 mg was given once in the ED. patient was started on aspirin 81 mg and Plavix 75 mg by the primary team as well as was started on Lipitor 40 mg aayush ly as well as by the primary team. Continue aspirin 81 mg indefinetiley then discontinue plavix after 21 days. I consulted cardiology because of the suspicion of A. fib. They are planning of placing the patient on a Holter monitoring for 30 days and if there is no A. fib. Then they plan of placing him on a loop recorder as an outpatient. Cardiology team will also perfrom a bubble study. Carotid duplex was ordered by the primary team's reported as image and measurements suggest close to 0% stenosis in both internal carotid arteries. There is antegrade flow in the vertebral arteries. Continue Speech and Language therapy. Also PT/OT. Lipid panel: Triglyceride 207, cholesterol is 183, LDLs 107, HDL is 35. The stroke the goal is LDL less than 70. 2-D echo: Pending. Pending bubble study. Ordered hemoglobin A1c:pending. TSH: 0.861 (normal). Primary team also consulted nephrology because of his the hypertension and rule out renal cause for his hypertension. Recommend the systolic blood pressure to be 160-180 I Then by tomorrow can lower it to 140-160. 'll defer the management to the primary team. She was counseled on tobacco cessation. Patient was counseled on the becoming compliant of taking his blood pressure medication and the monitoring his blood pressure on a daily basis and keeping a diary. Upon discharge the patient needs to follow-up with a neurologist within 1-2 weeks for his acute stroke. The plan was discussed with the patient as well as with the primary team. Will continue to follow. Desean Brothers M.D. Neuro-hospitalist Time with Patient: Less than 30
[2020-08-06 19:07] LABS: Hemoglobin A1C 4.8 % (4.0-6.0)
--- NOTE | 2020-08-06 20:03 | P.PN ---
Progress Note - Text Progress Note Date: 08/06/20 Chief Complaint: difficulty speaking History of presenting complaint: This is a pleasant 44-year-old patient who follows with Dr. Rodríguez. Patient has a long-standing diagnosis of hypertension. And takes Zestril Coreg and hydralazine. 2 days ago patient decided not to take his medications as he didn't feel good about it. Yesterday he noticed that his words are not coming out his speech was slurred . He was also having some headache. No weakness in the limbs. No change in vision. This morning he was talking to a colleague of his on the phone previously she was a nurse. She thought he was drunk. Then she told him go to the ER. In the ER patient is not found to be candidate for thrombolysis. Patient stated his blood pressure normally runs high close to oftentimes due to 118 200 systolic.. Has not been well controlled. When I saw the patient about 5 PM today patient speech is better but not back to his baseline. Admitted with acute stroke in the left parietal lobe. Accepted hypertension. Patient also found to have CK D. Blood work for secondary causes of hypertension ordered by nephrology. Today-having slight headache. Laying in bed. Blood pressure running on the higher side. Speech better Review of systems: Was done for constitutional, cardiovascular, GI, pulmonary. relevant finding as above Active Medications Acetaminophen (Acetaminophen Tab 325 Mg Tab) 650 mg PO Q6HR PRN PRN Reason: Mild Pain or Fever > 100.5 Last Admin: 08/06/20 12:20 Dose: 650 mg Documented by: Al Hydroxide/Mg Hydroxide (Mag Hydrox/Al Hydrox/Simeth 30 Ml Cup) 15 ml PO Q6HR PRN PRN Reason: Indigestion Aspirin (Aspirin 81 Mg) 81 mg PO DAILY [facility] Last Admin: 08/06/20 08:57 Dose: 81 mg Documented by: Atorvastatin Calcium (Atorvastatin 40 Mg Tab) 40 mg PO HS [facility] Last Admin: 08/05/20 22:14 Dose: 40 mg Documented by: Calcium Carbonate/Glycine (Calcium Carbonate 500 Mg Chewable) 1,000 mg PO Q4HR PRN PRN Reason: Dyspepsia Clopidogrel Bisulfate (Clopidogrel 75 Mg Tab) 75 mg PO DAILY [facility] Last Admin: 08/06/20 08:56 Dose: 75 mg Documented by: Enoxaparin Sodium (Enoxaparin 40 Mg/0.4 Ml Syringe) 40 mg SQ DAILY [facility] Last Admin: 08/06/20 08:57 Dose: 40 mg Documented by: Lisinopril/HCTZ (Lisinopril-Hctz 20-12.5 Mg 1 Each Tab) 1 each PO BID [facility] Last Admin: 08/06/20 09:00 Dose: 1 each Documented by: Hydralazine HCl (Hydralazine Hcl 50 Mg Tab) 50 mg PO TID [facility] Last Admin: 08/06/20 17:34 Dose: 50 mg Documented by: Hydralazine HCl (Hydralazine Hcl 20 Mg/Ml 1 Ml Vial) 10 mg IVP Q4HR PRN PRN Reason: Blood Pressure - High Sodium Chloride (Saline 0.9%) 1,000 mls @ 20 mls/hr IV .Q24H [facility] Last Admin: 08/06/20 12:21 Dose: Not Given Documented by: Labetalol HCl (Labetalol 200 Mg Tab) 200 mg PO BID [facility] Last Admin: 08/06/20 09:00 Dose: 200 mg Documented by: Lactulose (Lactulose 20 Gm/30 Ml Cup) 20 gm PO DAILY PRN PRN Reason: Constipation Melatonin (Melatonin 3 Mg Tablet) 3 mg PO HS PRN PRN Reason: Insomnia Naloxone HCl (Naloxone 0.4 Mg/Ml 1 Ml Vial) 0.2 mg IV Q2M PRN PRN Reason: Opioid Reversal Nicotine (Nicotine 21mg/24hr Patch) 1 patch TRANSDERM DAILY [facility] Last Admin: 08/06/20 08:57 Dose: 1 patch Documented by: Ondansetron HCl (Ondansetron 4 Mg/2 Ml Vial) 4 mg IVP Q8HR PRN PRN Reason: Nausea And Vomiting Physical examination: VITAL SIGNS: 97.9, 71, 1 78 x 1 15, 97% room air GENERAL: Laying in bed to bit tired EYES: Pupils equal. Conjunctiva normal. HEENT: External appearance of nose and ears normal, oral cavity grossly normal. NECK: JVD not raised; masses not palpable. HEART: First and second heart sounds are normal; no edema. LUNGS: Respiratory rate normal; clear to auscultation. ABDOMEN: Soft, nontender, liver spleen not palpable, no masses palpable. PSYCH: Alert and oriented x3; mood and affect normal. NEUROLOGICAL: Speech slightly slow. INVESTIGATIONS, reviewed in the clinical context: LDL 107 White count 7.8 hemoglobin 16.2 platelets 179 potassium 3.5 creatinine 1.28 Computed tomography scan of the brain without contrast-nothing acute Chest x-ray film personally reviewed by me-lung taylor clear EKG tracing personally reviewed by me-sinus rhythm, right bundle branch block pattern, LVH with strain pattern Renal ultrasound-unremarkable Carotid Doppler-unremarkable MRI of the brain-acute infarct in the white matter left parietal lobe. Old lacunar infarct in the right anterior internal capsule and left side of the daryl Assessment: -Acute stroke-white matter of the left parietal lobe. Given the other evidence of lacunar infarct in other areas, this could be from uncontrolled hypertension. Embolic need to be considered. -Accelerated hypertension. 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 Asymptomatic -Chronic nicotine dependence patient cigarette smoker -Acute dysarthria from stroke Plan: Continue current medication treatment plan. Spoke to Dr. Harmon this afternoon. He'll be adjusting the blood pressure medications. Causes for secondary hypertension have been noted. Discussed with the patient.
[2020-08-06] MEDS: ATORVASTATIN 40 MG TAB PO SCH (21:07)
[2020-08-07] MEDS: LABETALOL 200 MG TAB PO SCH ×3 (03:05→20:39)
[2020-08-07] MEDS: hydrALAZINE HCL 50 MG TAB PO SCH ×3 (09:17→22:37)
[2020-08-07] MEDS: ASPIRIN 81 MG PO SCH (09:17)
[2020-08-07] MEDS: ENOXAPARIN 40 MG/0.4 ML SYRINGE SQ SCH (09:17)
[2020-08-07] MEDS: CLOPIDOGREL 75 MG TAB PO SCH (09:17)
[2020-08-07] MEDS: LISINOPRIL-HCTZ 20-12.5 MG 1 EACH TAB PO SCH ×2 (09:21→20:39)
[2020-08-07] MEDS: NICOTINE 21MG/24HR PATCH TRANSDERM SCH (09:23)
[2020-08-07 10:17] LABS: Calcium 9.5 mg/dL (8.4-10.2); Potassium 3.7 mmol/L (3.5-5.1)
--- NOTE | 2020-08-07 11:00 | ECHOF ---
Referral Reason:stroke vs hypertensive urgency MEASUREMENTS -------- HEIGHT: 180.3 cm WEIGHT: 88.0 kg BP: IVSd: 1.5 cm (0.6 - 1.1) LVIDd: 4.7 cm (3.9 - 5.3) LVPWd: 1.5 cm (0.6 - 1.1) EDV(Teich): 101 ml IVSs: 1.9 cm LVIDs: 3.6 cm LVPWs: 1.8 cm %IVS Thck: 30 % ESV(Teich): 55 ml EF(Teich): 45 % %FS: 22 % SV(Teich): 45 ml LA Diam: 3.8 cm (2.7 - 3.8) RVIDd: 2.7 cm (< 3.3) IVC: 20.53 mm LALs A4C: 5.6 cm LAAs A4C: 19.6 cm LAESV A-L A4C: 58 ml LAESV MOD A4C: 54 ml LALs A2C: 5.8 cm LAAs A2C: 16.6 cm LAESV A-L A2C: 40 ml LAESV MOD A2C: 37 ml LAESV(A-L): 49 ml LAESV Index (A-L): 23.71 ml/m Ao Diam: 3.4 cm (2.0 - 3.7) AV Cusp: 2.2 cm (1.5 - 2.6) EPSS: 0.4 cm MV E Shashi: 0.80 m/s MV DecT: 199 ms MV Dec Potter: 4.0 m/s MV A Shashi: 0.60 m/s MV E/A Ratio: 1.34 MV PHT: 58 ms AV Vmax: 1.42 m/s AV maxP.11 mmHg TR Vmax: 2.31 m/s TR maxP.33 mmHg RAP: 15.00 mmHg RVSP: 36.33 mmHg MV EF SLOPE: 149.07 mm/s (70 - 150) MV EXCURSION: 20.65 mm (> 18.000) FINDINGS -------- Sinus rhythm. This was a technically good study. The left ventricular size is normal. There is moderate concentric left ventricular hypertrophy. [facility] left ventricular systolic function is normal with, an EF between 55 - 60 %. Ground glass appe arence of the LV The right ventricle is normal in size. Normal LA size by volume 22+/-6 ml/m2. The right atrium is normal in size. Contrast study was performed with 2 iv injections of 8 ccs of agitated normal saline, at rest, and wi th cough. No crossing bubble noted Interatrial and interventricular septum intact. The aortic valve is trileaflet and appears structurally normal. The mitral valve is normal. Mild mitral regurgitation is present. Mild tricuspid regurgitation present. Right ventricular systolic pressure is normal at < 35 mmHg. Trace/mild (physiologic) pulmonic regurgitation. The aortic root size is normal. Normal inferior vena cava with normal inspiratory collapse consistent with estimated right atrial pre ssure of 5 mmHg. There is no pericardial effusion. CONCLUSIONS -------- 1. The left ventricular size is normal. 2. There is moderate concentric left ventricular hypertrophy. 3. Overall left ventricular systolic function is normal with, an EF between 55 - 60 %. 4. Ground glass appearence of the LV 5. Contrast study was performed with 2 iv injections of 8 ccs of agitated normal saline, at rest, and with cough. 6. No crossing bubble noted 7. Mild mitral regurgitation is present. 8. Mild tricuspid regurgitation present. 9. Trace/mild (physiologic) pulmonic regurgitation. 10. There is no pericardial effusion. HEAD OF QUALITY: Aleksandra Steward RDCS
--- NOTE | 2020-08-07 13:52 | P.PN ---
Subjective Progress Note Date: 08/07/20 CHIEF COMPLAINT: Possible A. fib HISTORY OF PRESENT ILLNESS: Patient examined this morning at the bedside. Patient states his speech is continuing to slowly improve. Patients blood pressure remains elevated this morning. Echocardiogram completed reveals EF be tween 55 and 60%, mild tricuspid regurgitation. Bubble study was negative. PHYSICAL EXAM: VITAL SIGNS: Reviewed. GENERAL: Well-developed in no acute distress. HEENT: Head is normocephalic. Pupils are equal, round. Sclerae anicteric. Mucous membranes of the mouth are moist. Neck supple. No JVD or thyromegaly LUNGS: Respirations even and unlabored. Lungs essentially clear to auscultation bilaterally. HEART: Regular rate and rhythm. S1 and S2 heard. ABDOMEN: Soft. Nondistended. Nontender. EXTREMITIES: Normal range of motion. No clubbing or cyanosis. Peripheral pulses intact. No lower extremity edema NEUROLOGIC: Awake and alert. Oriented x 3. ASSESSMENT: Acute CVA Hypertension, uncontrolled Palpitations, No evidence of atrial fibrillation on telemetry Medical noncompliance Nicotine dependence PLAN: Continue current medications Blood pressure being managed by internal medicine and nephrology. Will defer to their service at this time. Patient to have an event monitor placed at time of discharge for 30 days. If no evidence of atrial fibrillation is noted on event monitor, may consider loop recorder Patient to follow up outpatient with Dr. Wong Nurse practitioner note has been reviewed by physician. Signing provider agrees with the documented findings, assessment, and plan of care. Objective - Vital Signs Vital signs: Vital Signs Temp 98.3 F 08/07/20 11:00 Pulse 72 08/07/20 12:45 Resp 18 08/07/20 11:00 BP 195/122 08/07/20 12:45 Pulse Ox 95 08/07/20 12:35 Intake & Output 08/06/20 08/07/20 08/07/20 18:59 06:59 18:59 Intake Total 565 Output Total 400 Balance 165 Weight 86.7 kg Intake: Oral 565 Output: Urine 400 Other: # Voids 1 1 1 - Labs CBC & Chem 7: 08/05/20 10:08 08/07/20 09:30 Labs: Abnormal Lab Results - Last 24 Hours (Table) 08/07/20 Range/Units 09:30 Carbon Dioxide 31 H (22-30) mmol/L Creatinine 1.28 H (0.66-1.25) mg/dL
--- NOTE | 2020-08-07 14:40 | US ---
EXAMINATION TYPE: US renal artery duplex complete DATE OF EXAM: 08/07/2020 COMPARISON: Renal US 08/05/2020 CLINICAL HISTORY: CAM, HTN. MEASUREMENTS: RENAL SIZE: Rt Kidney: 11.2 x 4.9 x 6.3 cm Lt Kidney: 11.9 x 5.7 x 5.9 cm RESISTANCE INDEX Right: 0.59 Left: 0.58 RA/AO RATIO (< 3.5 ) Right: 1.6 Left: 2.1 RA VELOCITY ( < 180 cm/s) Right: 115 Left: 151 Bilateral kidneys and abdominal aorta unremarkable. No abdominal aortic aneurysm. No ultrasound evide nce for renal artery stenosis. Normal resistive indices bilaterally. IMPRESSION: 1. No evidence of renal artery stenosis bilaterally. 2. Unremarkable bilateral kidneys and abdominal aorta.
--- NOTE | 2020-08-07 14:59 | P.PN ---
Subjective Patient is seen in follow-up for acute kidney injury and hypertension. Renal function is stable and appears to be his baseline. Blood pressure has been in the 160s to 190s systolic. Patient had an acute CVA. Good urine output. No vomiting or diarrhea. No significant weakness in any of his extremities. Overall feels well. Vital signs are stable. General: The patient appeared well nourished and normally developed. HEENT: Head exam is unremarkable. Neck is without jugular venous distension. LUNGS: Lungs are clear to auscultation and percussion. Breath sounds decreased. HEART: Rate and Rhythm are regular. ABDOMEN: Soft, nontender. EXTREMITITES: No clubbing, cyanosis, or edema. Objective - Vital Signs Vital signs: Vital Signs Temp 98.3 F 08/07/20 11:00 Pulse 72 08/07/20 12:45 Resp 18 08/07/20 11:00 BP 195/122 08/07/20 12:45 Pulse Ox 95 08/07/20 12:35 Intake & Output 08/06/20 08/07/20 08/07/20 18:59 06:59 18:59 Intake Total 565 Output Total 400 Balance 165 Weight 86.7 kg Intake: Oral 565 Output: Urine 400 Other: # Voids 1 1 1 - Labs CBC & Chem 7: 08/05/20 10:08 08/07/20 09:30 Labs: Abnormal Lab Results - Last 24 Hours (Table) 08/07/20 Range/Units 09:30 Carbon Dioxide 31 H (22-30) mmol/L Creatinine 1.28 H (0.66-1.25) mg/dL Assessment and Plan Plan: Assessment: 1. Hypertensive emergency. Secondary causes being ruled out. No evidence of renal artery stenosis. 2. Acute left parietal lobe CVA. 3. Chronic kidney disease stage III secondary to nephrosclerosis with baseline creatinine in the range of 1.1-1.3. UA fairly benign. Plan: Maintain current antihypertensives. Avoid rapid correction of hypertension due to acute CVA. Follow-up renin and aldosterone levels. Follow-up plasma metanephrines. Add amlodipine 5 mg twice daily - to be held for systolic blood pressure less than 140. Depending on his blood pressure readings tomorrow, plan to add Aldactone and wean off hydralazine.
--- NOTE | 2020-08-07 15:34 | P.PN ---
Subjective Progress Note Date: 08/07/20 This is a 44-year-old male who was recently admitted with slurred speech and is being closely monitored. Patient is being evaluated by cardiology along with neurology. Patient's speech has improved although blood pressure continues to be elevated and uncontrolled at this time. Nephrology also following for chronic kidney disease. Renal artery ultrasound is ordered and currently pending at this time. Patient continues to have dizziness and headache and elevated blood pressure. She underwent an MRI of the brain showing an acute infarct in the white matter left parietal lobe with an old lacunar infarct in the right anterior internal capsule and left side of the daryl. Patient admits to tobacco use and states he will be quitting. Nicotrol patches ordered. Patient denies any left or right-sided deficits at this time. States his speech is back to normal. Her creatinine 1.28 and maintained on fluids. Review of systems: Constitutional: No reports of fatigue, fever, or chills Cardiovascular: No reports of chest pain or palpitations Respiratory: Reports intermittent shortness of breath with no cough GI: No reports of nausea, vomiting, or diarrhea : No reports of dysuria or retention Neurovascular: No reports of weakness or numbness, reports dizziness and headache All medications have been reviewed Active Medications Acetaminophen (Acetaminophen Tab 325 Mg Tab) 650 mg PO Q6HR PRN PRN Reason: Mild Pain or Fever > 100.5 Last Admin: 08/06/20 12:20 Dose: 650 mg Documented by: Al Hydroxide/Mg Hydroxide (Mag Hydrox/Al Hydrox/Simeth 30 Ml Cup) 15 ml PO Q6HR PRN PRN Reason: Indigestion Amlodipine Besylate (Amlodipine 5 Mg Tab) 5 mg PO BID [facility] Aspirin (Aspirin 81 Mg) 81 mg PO DAILY [facility] Last Admin: 08/07/20 09:17 Dose: 81 mg Documented by: Atorvastatin Calcium (Atorvastatin 40 Mg Tab) 40 mg PO HS [facility] Last Admin: 08/06/20 21:07 Dose: 40 mg Documented by: Calcium Carbonate/Glycine (Calcium Carbonate 500 Mg Chewable) 1,000 mg PO Q4HR PRN PRN Reason: Dyspepsia Clopidogrel Bisulfate (Clopidogrel 75 Mg Tab) 75 mg PO DAILY [facility] Last Admin: 08/07/20 09:17 Dose: 75 mg Documented by: Enoxaparin Sodium (Enoxaparin 40 Mg/0.4 Ml Syringe) 40 mg SQ DAILY [facility] Last Admin: 08/07/20 09:17 Dose: 40 mg Documented by: Lisinopril/HCTZ (Lisinopril-Hctz 20-12.5 Mg 1 Each Tab) 1 each PO BID [facility] Last Admin: 08/07/20 09:21 Dose: 1 each Documented by: Hydralazine HCl (Hydralazine Hcl 50 Mg Tab) 50 mg PO TID [facility] Last Admin: 08/07/20 09:17 Dose: 50 mg Documented by: Hydralazine HCl (Hydralazine Hcl 20 Mg/Ml 1 Ml Vial) 10 mg IVP Q4HR PRN PRN Reason: Blood Pressure - High Sodium Chloride (Saline 0.9%) 1,000 mls @ 20 mls/hr IV .Q24H [facility] Last Admin: 08/06/20 12:21 Dose: Not Given Documented by: Labetalol HCl (Labetalol 200 Mg Tab) 200 mg PO BID [facility] Last Admin: 08/07/20 09:21 Dose: 200 mg Documented by: Lactulose (Lactulose 20 Gm/30 Ml Cup) 20 gm PO DAILY PRN PRN Reason: Constipation Melatonin (Melatonin 3 Mg Tablet) 3 mg PO HS PRN PRN Reason: Insomnia Naloxone HCl (Naloxone 0.4 Mg/Ml 1 Ml Vial) 0.2 mg IV Q2M PRN PRN Reason: Opioid Reversal Nicotine (Nicotine 21mg/24hr Patch) 1 patch TRANSDERM DAILY [facility] Last Admin: 08/07/20 09:23 Dose: Not Given Documented by: Ondansetron HCl (Ondansetron 4 Mg/2 Ml Vial) 4 mg IVP Q8HR PRN PRN Reason: Nausea And Vomiting Objective - Vital Signs Vital signs: Vital Signs Temp 98.3 F 08/07/20 11:00 Pulse 72 08/07/20 12:45 Resp 18 08/07/20 11:00 BP 195/122 08/07/20 12:45 Pulse Ox 95 08/07/20 12:35 Intake & Output 08/06/20 08/07/20 08/07/20 18:59 06:59 18:59 Intake Total 565 Output Total 400 Balance 165 Weight 86.7 kg Intake: Oral 565 Output: Urine 400 Other: # Voids 1 1 1 - Exam VITAL SIGNS: 97.9, 71, 1 78 x 1 15, 97% room air GENERAL: Laying in bed to bit tired EYES: Pupils equal. Conjunctiva normal. HEENT: External appearance of nose and ears normal, oral cavity grossly normal. NECK: JVD not raised; masses not palpable. HEART: First and second heart sounds are normal; no edema. LUNGS: Respiratory rate normal; clear to auscultation. ABDOMEN: Soft, nontender, liver spleen not palpable, no masses palpable. PSYCH: Alert and oriented x3; mood and affect normal. NEUROLOGICAL: Speech slightly slow. 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 Asymptomatic -Chronic nicotine dependence patient cigarette smoker -Acute dysarthria from stroke Recommendations and discussion: Comment continue current medications, management, and symptomatic treatment. Nephrology along with neurology and cardiology following. Patient is receiving a cardiac event monitor and will follow-up with cardiology in the outpatient setting. Blood pressures remain uncontrolled and nephrology also ordered renal artery ultrasound which is pending at this time. Medications adjustments are being made to blood pressure medications. Patient is maintained on aspirin and Plavix along with Lipitor and will continue at this time. Further recommendations to follow. Will repeat a.m. labs. Possible discharge in 24 martínez rs.
--- NOTE | 2020-08-07 16:02 | P.PN ---
Subjective Progress Note Date: 08/07/20 Patient was seen at bedside and the he stated that he had an episode about 1145 lasting just more than 1 hour of feeling flushed generalized weakness that at which resolved. He said it was around the time he got multiple medication and was mostly blood pressure medication. He denied any associated visual disturbance any headache any slurring of the speech or difficulty getting his words out. Otherwise he's been feeling well and no worsening of his neurological symptoms he feels otherwise is a slurring the speech and getting his wood does has been improving. Denies of any focal weakness any numbness. Again no headaches, no nausea no vomiting. Objective - Vital Signs Vital signs: Vital Signs Temp 98.3 F 08/07/20 11:00 Pulse 72 08/07/20 12:45 Resp 18 08/07/20 11:00 BP 195/122 08/07/20 12:45 Pulse Ox 95 08/07/20 12:35 Intake & Output 08/06/20 08/07/20 08/07/20 18:59 06:59 18:59 Intake Total 565 Output Total 400 Balance 165 Weight 86.7 kg Intake: Oral 565 Output: Urine 400 Other: # Voids 1 1 1 - Exam GENERAL: The patient is lying in bed and is not in acute distress. NEUROLOGICAL: Higher mental function: The patient is awake, alert, oriented to self, place and time. Able to identify objects correctly such as a pen and watch and the phone. Patient is following commands. No aphasia . Noted. No neglect. Cranial nerves: The pupils are round, equal and reactive to light and accommodation. Visual taylor are full to confrontation throughout. Extraocular movement is intact no nystagmus is noted. Facial sensation is normal to touch throughout. The facial strength is normal throughout. Hearing is normal bilaterally to hand rub. Tongue is midline and moved [id number] without any difficulty. Mild dysarthria is noted. Shoulder shrug is normal bilaterally. Motor: Gait is normal with normal arm swings. The strength is 5 over 5 throughout. Normal tone and bulk. Cerebellum: Normal finger to nose bilaterally. Sensation: Sensation is normal to touch throughout. Reflexes (right/left): 2+ throughout. Plantars are downgoing bilaterally. - Labs CBC & Chem 7: 08/05/20 10:08 08/07/20 09:30 Labs: Abnormal Lab Results - Last 24 Hours (Table) 11/25/20 Range/Units 09:30 Carbon Dioxide 31 H (22-30) mmol/L Creatinine 1.28 H (0.66-1.25) mg/dL Assessment and Plan Assessment: This 45-year-old gentleman with medical history of hypertension and tobacco use that presented to the emergency department on 08/05/2020 for difficulty speaking. Acute Dysarthria due to acute ischemic left parietal. Etiology small vessel disease. Cannot rule out cardioembolic (per patient nurse his aluminum can collector was suspicious for atrial fibrillation) -Dysarthria and possibly aphasia--improving. Old lacunar infarct in the right anterior internal capsule and the left side of the daryl: I think likely it's due to small vessel disease from uncontrolled hypertension. ?aluminum can collector was suspicious for atrial fibrillation (per patient nurse) Hypertensive urgency (uncontrolled hypertension) Tobacco use Plan: MRI of the brain was reported as the acute infarct in the white matter for left parietal lobe. Old lacunar infarct in the right anterior internal capsule on the left sided of the daryl. Aspirin 324 mg was given once in the ED. patient was started on aspirin 81 mg and Plavix 75 mg by the primary team as well as was started on Lipitor 40 mg daily as well as by the primary team. Continue aspirin 81 mg indefinetiley then discontinue plavix after 21 days. I consulted cardiology because of the suspicion of A. fib. They are planning of placing the patient on a Holter monitoring for 30 days and if there is no A. fib. Then they plan of placing him on a loop recorder as an outpatient. Cardiology team will also perfrom a bubble study. Carotid duplex was ordered by the primary team's reported as image and measurements suggest close to 0% stenosis in both internal carotid arteries. There is antegrade flow in the vertebral arteries. Continue Speech and Language therapy. Also PT/OT. Lipid panel: Triglyceride 207, cholesterol is 183, LDLs 107, HDL is 35. The stroke the goal is LDL less than 70. 2-D echo: Pending. Pending bubble study. Ordered hemoglobin A1c:pending. TSH: 0.861 (normal). Primary team also consulted nephrology because of his the hypertension and rule out renal cause for his hypertension. Recommend the systolic blood pressure to be 140-160 I Then by tomorrow can lower it to 140-160. 'll defer the management to the primary team. He was counseled on tobacco cessation. Patient was counseled on the becoming compliant of taking his blood pressure medication and the monitoring his blood pressure on a daily basis and keeping a diary. Upon discharge the patient needs to follow-up with a neurologist within 1-2 weeks for his acute stroke. If the patient's blood pressure stabilized and the he has no further episodes of neurological symptoms or any worsening of his neurological condition from neurology perspective he is clear by tomorrow (08/08/20). Will continue to follow. Desean Brothers M.D. Neuro-hospitalist Time with Patient: Less than 30
[2020-08-07] MEDS: SODIUM CHLORIDE 0.9% 1,000 ML IV SCH (18:12)
[2020-08-07] MEDS: ATORVASTATIN 40 MG TAB PO SCH (20:39)
[2020-08-07] MEDS: amLODIPine 5 MG TAB PO SCH (20:39)
[2020-08-08 08:46] LABS: Basophils # (A) 0.1 k/uL (0-0.2); Basophils % (A) 1 %; Eosinophils # (A) 0.2 k/uL (0-0.7); Eosinophils % (A) 3 %; HCT 47.3 % (39.0-53.0); HGB 16.4 gm/dL (13.0-17.5); Lymphocytes # (A) 1.9 k/uL (1.0-4.8); Lymphocytes % (A) 23 %; MCH 29.4 pg (25.0-35.0); MCHC 34.7 g/dL (31.0-37.0); MCV 84.6 fL (80.0-100.0); Mean Platelet Volume 7.1; Monocytes # (A) 0.4 k/uL (0-1.0); Monocytes % (A) 5 %; Neutrophils # (A) 5.7 k/uL (1.3-7.7); Neutrophils % (A) 68 %; Platelet Count 161 k/uL (150-450); RBC 5.59 m/uL (4.30-5.90); RDW 13.3 % (11.5-15.5); WBC 8.3 k/uL (3.8-10.6)
[2020-08-08 09:03] LABS: Calcium 9.5 mg/dL (8.4-10.2); Potassium 3.5 mmol/L (3.5-5.1)
[2020-08-08 09:13] VITALS: TEMP 98.1
[2020-08-08] MEDS: amLODIPine 5 MG TAB PO SCH (10:09)
[2020-08-08] MEDS: CLOPIDOGREL 75 MG TAB PO SCH (10:09)
[2020-08-08] MEDS: ASPIRIN 81 MG PO SCH (10:09)
[2020-08-08] MEDS: hydrALAZINE HCL 50 MG TAB PO SCH (10:09)
[2020-08-08] MEDS: LABETALOL 200 MG TAB PO SCH (10:10)
[2020-08-08] MEDS: LISINOPRIL-HCTZ 20-12.5 MG 1 EACH TAB PO SCH (10:10)
[2020-08-08] MEDS: ENOXAPARIN 40 MG/0.4 ML SYRINGE SQ SCH (10:11)
[2020-08-08] MEDS: NICOTINE 21MG/24HR PATCH TRANSDERM SCH (10:11)
[2020-08-08 12:47] VITALS: BP 162/98; PULSE 73; RESP 18
--- NOTE | 2020-08-08 13:11 | P.PN ---
Subjective Progress Note Date: 08/08/20 Follow-up for hypertension and acute kidney injury. Blood pressures better around 150s systolic. Objective - Vital Signs Vital signs: Vital Signs Temp 98.1 F 08/08/20 12:00 Pulse 73 08/08/20 12:00 Resp 18 08/08/20 12:00 BP 162/98 08/08/20 12:00 Pulse Ox 94 L 08/08/20 12:00 Intake & Output 08/07/20 08/08/20 08/08/20 18:59 06:59 18:59 Intake Total 240 120 Balance 240 120 Weight 85.7 kg Intake: Oral 240 120 Other: # Voids 2 1 - Exam Acute distress S1-S2 heard Lungs clear No edema - Labs CBC & Chem 7: 08/08/20 08:00 08/08/20 08:00 Labs: Abnormal Lab Results - Last 24 Hours (Table) 08/08/20 Range/Units 08:00 Creatinine 1.27 H (0.66-1.25) mg/dL Glucose 101 H (74-99) mg/dL Assessment and Plan Assessment: #1 hypertensive emergency, resolved. Blood pressures better. #2 acute left parietal lobe CVA #3 CK D3 secondary to nephrosclerosis with a baseline creatinine of 1.1-1.3 MG per DL. #4 metabolic alkalosis Plan: #1 renal function stable at baseline. #2 blood pressures better controlled, needs more adjustment as outpatient. #3 goal blood pressure less than 130/90. Can be achieved outpatient basis with close monitoring. Phonates secondary hypertension workup. #4 able from nephrology for discharge to be followed up in the clinic in 1 week. Advised to monitor blood pressures at home.
--- NOTE | 2020-08-08 13:26 | P.PN ---
Subjective Progress Note Date: 08/08/20 CHIEF COMPLAINT: Possible A. fib HISTORY OF PRESENT ILLNESS: Patient examined this morning at the bedside. Patient denies chest pain or pressure. He denies shortness of breath. Patient had event monitor placed yesterday. Patients blood pressure remains elevated this morning. PHYSICAL EXAM: VITAL SIGNS: Reviewed. GENERAL: Well-developed in no acute distress. HEENT: Head is normocephalic. Pupils are equal, round. Sclerae anicteric. Mucous membranes of the mouth are moist. Neck supple. No JVD or thyromegaly LUNGS: Respirations even and unlabored. Lungs essentially clear to auscultation bilaterally. HEART: Regular rate and rhythm. S1 and S2 heard. ABDOMEN: Soft. Nondistended. Nontender. EXTREMITIES: Normal range of motion. No clubbing or cyanosis. Peripheral pulses intact. No lower extremity edema NEUROLOGIC: Awake and alert. Oriented x 3. ASSESSMENT: Acute CVA Hypertension, uncontrolled Palpitations, No evidence of atrial fibrillation on telemetry Medical noncompliance Nicotine dependence PLAN: Continue current medications Increase hydralazine to 100 mg 3 times a day Patient had event monitor placed yesterday Patient to follow-up outpatient with Dr. Wong Nurse practitioner note has been reviewed by physician. Signing provider agrees with the documented findings, assessment, and plan of care. Objective - Vital Signs Vital signs: Vital Signs Temp 98.1 F 08/08/20 12:00 Pulse 73 08/08/20 12:00 Resp 18 08/08/20 12:00 BP 162/98 08/08/20 12:00 Pulse Ox 94 L 08/08/20 12:00 Intake & Output 08/07/20 08/08/20 08/08/20 18:59 06:59 18:59 Intake Total 240 120 Balance 240 120 Weight 85.7 kg Intake: Oral 240 120 Other: # Voids 2 1 - Labs CBC & Chem 7: 08/08/20 08:00 08/08/20 08:00 Labs: Abnormal Lab Results - Last 24 Hours (Table) 08/08/20 Range/Units 08:00 Creatinine 1.27 H (0.66-1.25) mg/dL Glucose 101 H (74-99) mg/dL
--- NOTE | 2020-08-08 14:54 | P.PN ---
Subjective Progress Note Date: 08/08/20 The patient was seen at bedside and the patient stated that he's doing well. He stated that the he has not had any further episodes of feeling the generalized weakness or feeling flushed. He stated that he does have the very rare occasion that and he has a difficulty getting the words out right or stumbles on the words. Otherwise he denies any weakness, numbness any visual disturbance, any headaches, any nausea any vomiting. Objective - Vital Signs Vital signs: Vital Signs Temp 98.1 F 08/08/20 12:00 Pulse 73 08/08/20 12:00 Resp 18 08/08/20 12:00 BP 162/98 08/08/20 12:00 Pulse Ox 94 L 08/08/20 12:00 Intake & Output 08/07/20 08/08/20 08/08/20 18:59 06:59 18:59 Intake Total 240 120 Balance 240 120 Weight 85.7 kg Intake: Oral 240 120 Other: # Voids 2 1 - Exam GENERAL: The patient is lying in bed and is not in acute distress. NEUROLOGICAL: Higher mental function: The patient is awake, alert, oriented to self, place and time. Able to identify objects correctly such as a pen and watch and the phone. Patient is following commands. He has marlena broca aphasia. No neglect. Cranial nerves: The pupils are round, equal and reactive to light and accommodation. Visual taylor are full to confrontation throughout. Extraocular movement is intact no nystagmus is noted. Facial sensation is normal to touch throughout. The facial strength is normal throughout. Hearing is normal bilaterally to hand rub. Tongue is midline and moved [id number] without any difficulty. Minimal dysarthria is noted. Shoulder shrug is normal bilaterally. Motor: Gait is normal with normal arm swings. The strength is 5 over 5 throughout. Normal tone and bulk. Cerebellum: Normal finger to nose bilaterally. Sensation: Sensation is normal to touch throughout. Reflexes (right/left): 2+ throughout. Plantars are downgoing bilaterally. - Labs CBC & Chem 7: 08/08/20 08:00 08/08/20 08:00 Labs: Abnormal Lab Results - Last 24 Hours (Table) 08/08/20 Range/Units 08:00 Creatinine 1.27 H (0.66-1.25) mg/dL Glucose 101 H (74-99) mg/dL Assessment and Plan Assessment: This 45-year-old gentleman with medical history of hypertension and tobacco use that presented to the emergency department on 08/05/2020 for difficulty speaking. Acute Dysarthria and aphasia due to acute ischemic left parietal. Etiology small vessel disease. Cannot rule out cardioembolic (per patient nurse his monitor car operator was suspicious for atrial fibrillation) --improving. Old lacunar infarct in the right anterior internal capsule and the left side of the daryl: I think likely it's due to small vessel disease from uncontrolled hypertension. ?monitor car operator was suspicious for atrial fibrillation (per patient nurse) Hypertensive urgency (uncontrolled hypertension) Tobacco use Plan: MRI of the brain was reported as the acute infarct in the white matter for left parietal lobe. Old lacunar infarct in the right anterior internal capsule on the left sided of the daryl. Aspirin 324 mg was given once in the ED. patient was started on aspirin 81 mg and Plavix 75 mg by the primary team as well as was started on Lipitor 40 mg daily as well as by the primary team. Continue aspirin 81 mg indefinetiley then discontinue plavix after 21 days. I consulted cardiology because of the suspicion of A. fib. They are planning of placing the patient on a Holter monitoring for 30 days and if there is no A. fib. Then they plan of placing him on a loop recorder as an outpatient. Cardiology team will also perfrom a bubble study. Carotid duplex was ordered by the primary team's reported as image and measurements suggest close to 0% stenosis in both internal carotid arteries. There is antegrade flow in the vertebral arteries. Continue Speech and Language therapy. Also PT/OT. Lipid panel: Triglyceride 207, cholesterol is 183, LDLs 107, HDL is 35. The stroke the goal is LDL less than 70. Patient had event monitor placed yesterday by cardiology. He will follow-up with Dr. Wong as outpatient. 2-D echo: Moderate concentric left ventricular hypertrophy. Ejection fraction between 55-60%. Groundglass appearance of left ventricle. No PFO with a bubble study. Ordered hemoglobin A1c:4.8 (normal) TSH: 0.861 (normal). Primary team also consulted nephrology because of his the hypertension and rule out renal cause for his hypertension. Recommend the systolic blood pressure to be 120-140. I'll defer the management to the primary team. He was counseled on tobacco cessation. Patient was counseled on the becoming compliant of taking his blood pressure me dication and the monitoring his blood pressure on a daily basis and keeping a diary. Upon discharge the patient needs to follow-up with a neurologist within 1-2 weeks for his acute stroke. There is no further neurological workup. The plan was discussed with the patient as well as the nurse. Desean Brothers M.D. Neuro-hospitalist Time with Patient: Less than 30
[2020-08-08] MEDS ORDERED: hydrALAZINE HCL 50 MG TAB PO SCH (16:00)
--- NOTE | 2020-08-09 09:07 | DS ---
DISCHARGE SUMMARY FINAL DIAGNOSIS: 1. Acute stroke in white matter with left parietal lobe with evidence of old lacunar infarct noted on MRI. 2. Accelerated hypertension, uncontrolled with hypertensive urgency. 3. Chronic kidney disease stage 2, from hypertensive nephrosclerosis. 4. Isolated hypobilirubinemia, symptomatic. 5. History of nicotine dependence. 6. Acute dysarthria from stroke. DISCHARGE DISPOSITION: The patient will be discharged in a stable condition with guarded prognosis. HISTORY OF PRESENT ILLNESS: This 45-year-old gentleman with a past history of multiple medical problems being followed by Dr. Vitaly Abbott in the outpatient setting had features of stroke and multiple other medical problems, Blood pressure was monitored closely. Patient was seen by Neurology and Cardiology and the patient will be discharged in stable condition with guarded prognosis. The patient improved significantly. PHYSICAL EXAMINATION: On exam vitals are stable. Cardiovascular normal. Abdomen soft. Nervous system normal. Total time taken 35 minutes. DISCHARGE ADVICE: Cardiac diet. Activity limited until Followup. Follow up with the Dr. Vitaly Abbott in 1-2 days. Follow up with Dr. Emilio Carpio in one week. Follow up with Dr. Wong as advised. MEDICATIONS: 1. Apresoline 100 mg p.o. t.i.d. 2. Aspirin 81 mg p.o. daily. 3. Habitrol 21 daily. 4. Lipitor 40 mg p.o. q.h.s. 5. Norvasc 5 mg p.o. b.i.d. 6. Plavix 75 mg p.o. daily. 7. Trandate 200 mg p.o. b.i.d. 8. Lisinopril/hydrochlorothiazide 1 p.o. b.i.d. Please note that Cardiology has adjusted the medications. Please also note the renal artery duplex showed no evidence of any renal artery stenosis bilaterally. MMODL / IJN: [id number] /
[2020-08-11 16:34] LABS: Metanephrine, Free 71 pg/mL (< OR = 57); Normetanephrine, Free 116 pg/mL (< OR = 148); Total, Free (MN + NMN) 187 pg/mL (< OR = 205)
== END 2020-08-08 14:41 | disposition home or self-care (01) | DRG 65 ==
LOC: EC 09:39 → 3SCARD 11:50
PROVIDERS: ADMIT Hospitalist; ATTEND Hospitalist
DX: I63.81 Other cerebral infarction due to occlusion or stenosis of small artery (principal); I16.1 Hypertensive emergency; I45.2 Bifascicular block; N17.9 Acute kidney failure, unspecified; E87.3 Alkalosis; I13.10 Hypertensive heart and chronic kidney disease without heart failure, with stage 1 through stage 4 chronic kidney disease, or unspecified chronic kidney disease; R47.01 Aphasia; N18.30 Chronic kidney disease, stage 3 unspecified; R47.1 Dysarthria and anarthria; F17.210 Nicotine dependence, cigarettes, uncomplicated; Z91.14 Patient's other noncompliance with medication regimen; Z79.899 Other long term (current) drug therapy; Z90.49 Acquired absence of other specified parts of digestive tract; Z83.3 Family history of diabetes mellitus; Z82.49 Family history of ischemic heart disease and other diseases of the circulatory system; Z86.73 Personal history of transient ischemic attack (TIA), and cerebral infarction without residual deficits
CPT/HCPCS: 36415; 70450; 70496; 70498; 70551; 71046; 76770; 80048; 80053; 80061; 81003; 82088; 83036; 83735; 83835; 84244; 84443; 84484; 85025; 85610; 85730; 93005; 93270; 93306; 93880; 93975; 96374; 99285

== ENCOUNTER → 2023-04-21 | Outpatient (CLI) | payer OTHER ==
[2023-04-21 17:19] LABS: ALT 32 U/L (10-49); AST 21 U/L (14-35); BUN/Creat Ratio 6.38 Ratio (12.00-20.00); Blood Urea Nitrogen 8.3 mg/dL (9.0-27.0); Calcium 10.1 mg/dL (8.7-10.3); Carbon Dioxide 29.3 mmol/L (21.6-31.8); Chloride 102 mmol/L (96-109); Chol/HDL Ratio 4.24 Ratio; Glucose 92 mg/dL (70-110); LDL Cholesterol,Calculated 65.8 mg/dL (0.0-131.0); Potassium 3.5 mmol/L (3.5-5.5); Sodium 143 mmol/L (135-145)
== END | disposition home or self-care (01) ==
LOC: LABWHC1 12:07
PROVIDERS: ATTEND Nurse Practitioner Acute Care
DX: E78.2 Mixed hyperlipidemia (principal)
CPT/HCPCS: 36415; 80048; 80061; 84450; 84460

== ENCOUNTER → 2024-08-29 | Outpatient (CLI) | payer OTHER ==
[2024-08-29 16:28] LABS: HCT 48.6 % (39.6-50.0); HGB 16.8 g/dL (13.0-17.0); MCH 29.2 pg (27.0-32.0); MCHC 34.6 g/dL (32.0-37.0); MCV 84.5 FL (80.0-97.0); Mean Platelet Volume 9.5 FL (9.5-12.2); NRBC Per 100 WBC 0 X 10*3/uL (0.00-0.01); Platelet Count 211 X 10*3/uL (140-440); RBC 5.75 X 10*6/uL (4.40-5.60); WBC 8.44 X 10*3/uL (4.50-10.00)
== END | disposition home or self-care (01) ==
LOC: LABWHC1 11:24
PROVIDERS: ATTEND Internal Medicine
DX: R06.02 Shortness of breath (principal); R00.2 Palpitations
CPT/HCPCS: 36415; 84443; 85027